=== PATIENT | male | born 1970 | race African-American/Black ===

== ENCOUNTER 2016-08-23 17:54 | Emergency (ER) | payer MEDICAID, OTHER ==
[~2016-08-23] VITALS: Ht 180.3 cm; Wt 118.7 kg
[~2016-08-23 17:54] MED LIST: DIVA500T52 PO; LISI-618 PO; LITH300C3 PO; PALI6 PO
[2016-08-23 18:41] LABS: BASOPHILS # (AUTO) 0.09 K/uL (0.00-0.20); BASOPHILS % (AUTO) 1.3 % (0.0-2.0); EOSINOPHILS # (AUTO) 0.07 K/uL (0.00-0.70); EOSINOPHILS % (AUTO) 0.99 % (1.0-6.0); HEMATOCRIT 40.9 % (41-53); HEMOGLOBIN 13.6 g/dL (13.5-17.5); LYMPHOCYTES # (AUTO) 1.8 K/uL (1.0-4.8); LYMPHOCYTES % (AUTO) 27.2 % (22.0-44.0); MEAN CORPUSCULAR HEMOGLOBIN 30.1 pg (26.0-34.0); MEAN CORPUSCULAR HGB CONC 33.2 G/dL (31.0-37.0); MEAN CORPUSCULAR VOLUME 91 fL (80-100); MONOCYTES # (AUTO) 0.6 K/uL (0.1-1.0); MONOCYTES % (AUTO) 8.2 % (2.0-9.0); NEUTROPHILS # (AUTO) 4.2 K/uL (1.8-7.7); NEUTROPHILS % (AUTO) 62.3 % (40.0-70.0); PLATELET COUNT (AUTO) 301 K/uL (150-450); RED BLOOD CELL COUNT(AUTO) 4.51 MIL/uL (4.50-5.90); RED CELL DISTRIBUTION WIDTH 13.2 % (11.5-14.5); WHITE BLOOD COUNT (AUTO) 6.7 K/uL (4.5-11.0)
[2016-08-23 18:50] LABS: ANION GAP 11 mmol/L (8-16); CALCIUM, TOTAL 9.4 mg/dL (8.8-10.5); CARBON DIOXIDE 28 mmol/L (22-29); CHLORIDE 101 mmol/L (98-107); CREATININE 0.75 mg/dL (0.60-1.30); GLOMERULAR FILTR. RATE CALC > 60 mL/min (>60); POTASSIUM 3.6 mmol/L (3.5-5.1); SODIUM SERUM 140 mmol/L (136-145); UREA NITROGEN, BLOOD 4 mg/dL (7-18)
[2016-08-23 18:55] LABS: ALANINE AMINOTRANSFERASE 16 U/L (12-78); ALBUMIN 3.8 g/dL (3.4-5.0); ASPARTATE AMINOTRANSFERASE 16 U/L (15-37); BILIRUBIN,TOTAL 0.4 mg/dL (0.1-1.0); TOTAL PROTEIN, SERUM 8.3 g/dL (6.4-8.2)
[2016-08-23 18:57] LABS: VALPROIC ACID < 3 mcg/mL (50-100)
[2016-08-23 19:11] LABS: LITHIUM < 0.20 mmol/L (0.60-1.20)
[2016-08-23 19:14] VITALS: BP 160/90
[2016-08-23] MEDS ORDERED: HALOPERIDOL 5 MG TABLET PO ONE (19:15)
== END 2016-08-23 19:36 | disposition home or self-care (01) ==
LOC: EMS 17:56
DX: F20.0 Paranoid schizophrenia (principal); I10 Essential (primary) hypertension; F31.9 Bipolar disorder, unspecified; Z88.8 Allergy status to other drugs, medicaments and biological substances
CPT/HCPCS: 36415; 80053; 80164; 80178; 85025; 99284; G0480

== ENCOUNTER 2017-04-02 15:57 | Inpatient (IN) | payer MEDICAID, OTHER ==
[~2017-04-02] VITALS: Ht 180.3 cm; Wt 98.9 kg
[2017-04-02 17:03] LABS: GLUCOSE,POINT OF CARE 99 MG/DL (70-110)
[2017-04-02 17:12] LABS: BASOPHILS # (AUTO) 0.01 K/uL (0.00-0.20); BASOPHILS % (AUTO) 0.2 % (0.0-2.0); EOSINOPHILS # (AUTO) 0.18 K/uL (0.00-0.70); EOSINOPHILS % (AUTO) 2.77 % (1.0-6.0); HEMATOCRIT 37.2 % (41-53); HEMOGLOBIN 12.5 g/dL (13.5-17.5); LYMPHOCYTES # (AUTO) 1.4 K/uL (1.0-4.8); LYMPHOCYTES % (AUTO) 21.7 % (22.0-44.0); MEAN CORPUSCULAR HEMOGLOBIN 30.2 pg (26.0-34.0); MEAN CORPUSCULAR HGB CONC 33.5 G/dL (31.0-37.0); MEAN CORPUSCULAR VOLUME 90 fL (80-100); MONOCYTES # (AUTO) 0.6 K/uL (0.1-1.0); MONOCYTES % (AUTO) 9.1 % (2.0-9.0); NEUTROPHILS # (AUTO) 4.2 K/uL (1.8-7.7); NEUTROPHILS % (AUTO) 66.3 % (40.0-70.0); PLATELET COUNT (AUTO) 262 K/uL (150-450); RED BLOOD CELL COUNT(AUTO) 4.14 MIL/uL (4.50-5.90); RED CELL DISTRIBUTION WIDTH 13.2 % (11.5-14.5); WHITE BLOOD COUNT (AUTO) 6.4 K/uL (4.5-11.0)
[2017-04-02 17:23] LABS: ANION GAP 5 mmol/L (8-16); CALCIUM, TOTAL 9.2 mg/dL (8.8-10.5); CARBON DIOXIDE 31 mmol/L (22-29); CHLORIDE 105 mmol/L (98-107); CREATININE 0.81 mg/dL (0.60-1.30); GLOMERULAR FILTR. RATE CALC > 60 mL/min (>60); POTASSIUM 3.6 mmol/L (3.5-5.1); SODIUM SERUM 141 mmol/L (136-145); UREA NITROGEN, BLOOD 20 mg/dL (7-18)
[2017-04-02 17:29] LABS: ALANINE AMINOTRANSFERASE 42 U/L (12-78); ALBUMIN 3.5 g/dL (3.4-5.0); ASPARTATE AMINOTRANSFERASE 44 U/L (15-37); BILIRUBIN,TOTAL 0.6 mg/dL (0.1-1.0); TOTAL PROTEIN, SERUM 7.7 g/dL (6.4-8.2)
[2017-04-02] MEDS: PALIPERIDONE 6 MG ER TABLET PO SCH (21:34)
[2017-04-02] MEDS: DIVALPROEX SODIUM 500 MG ER TABLET PO SCH (21:34)
[2017-04-02 21:37] VITALS: BP 138/71
[2017-04-02 22:07] LABS: GLUCOSE,POINT OF CARE 87 MG/DL (70-110)
[2017-04-02] MEDS ORDERED: -PHARMACY VACCINE NOTE- MISC ONE ×2 (22:15)
[2017-04-02] MEDS ORDERED: INFLUENZA VIRUS VACCINE QVS 2017-18 (3YR+)/PF 60 MCG/0.5 ML SYRINGE IM ONE (22:15)
[2017-04-02 23:31] LABS: CHOL/HDL RATIO 3.4 (4.2-7.3); THYROID STIMULATING HORMONE 0.37 uIU/mL (0.36-3.74)
[2017-04-03 06:29] LABS: GLUCOSE,POINT OF CARE 107 MG/DL (70-110)
[2017-04-03 08:18] VITALS: BP 126/85
[2017-04-03] MEDS: LORazepam 2 MG TABLET PO PRN ×3 (08:40→17:02)
[2017-04-03] MEDS: LISINOPRIL 20 MG TABLET PO SCH ×2 (08:41→17:02)
[2017-04-03] MEDS ORDERED: NICOTINE 21 MG/24 HOUR PATCH TD SCH (09:00)
[2017-04-03 11:33] LABS: GLUCOSE,POINT OF CARE 101 MG/DL (70-110)
[2017-04-03] MEDS: HALOPERIDOL 5 MG TABLET PO PRN ×2 (12:55→17:02)
[2017-04-03] MEDS: NICOTINE 14 MG/24 HOUR PATCH TD SCH (14:45)
[2017-04-03] MEDS ORDERED: ACETAMINOPHEN 325 MG TABLET PO PRN (14:45)
[2017-04-03 16:00] VITALS: BP 120/68
[2017-04-03] MEDS: DIVALPROEX SODIUM 500 MG ER TABLET PO SCH (20:53)
[2017-04-03] MEDS: PALIPERIDONE 6 MG ER TABLET PO SCH (20:53)
[2017-04-03 22:54] LABS: GLUCOSE,POINT OF CARE 100 MG/DL (70-110)
[2017-04-04 00:41] VITALS: BP 128/81
[2017-04-04 08:19] VITALS: BP 138/80
[2017-04-04] MEDS: HALOPERIDOL 5 MG TABLET PO PRN ×3 (08:38→17:23)
[2017-04-04] MEDS: LORazepam 2 MG TABLET PO PRN ×3 (08:38→17:23)
[2017-04-04] MEDS: NICOTINE 14 MG/24 HOUR PATCH TD SCH (08:38)
[2017-04-04] MEDS: LISINOPRIL 20 MG TABLET PO SCH ×2 (08:38→17:15)
[2017-04-04 09:43] LABS: GLUCOSE,POINT OF CARE 83 MG/DL (70-110)
[2017-04-04 14:48] LABS: GLUCOSE,POINT OF CARE 91 MG/DL (70-110)
[2017-04-04 16:00] VITALS: BP 140/89
[2017-04-04 19:03] LABS: GLUCOSE,POINT OF CARE 85 MG/DL (70-110)
[2017-04-04] MEDS: PALIPERIDONE 6 MG ER TABLET PO SCH (20:12)
[2017-04-04] MEDS: DIVALPROEX SODIUM 500 MG ER TABLET PO SCH (20:12)
[2017-04-04 21:47] LABS: GLUCOSE,POINT OF CARE 96 MG/DL (70-110)
[2017-04-05 05:50] VITALS: BP 135/87
[2017-04-05 06:13] LABS: GLUCOSE,POINT OF CARE 111 MG/DL (70-110)
[2017-04-05 08:14] VITALS: BP 138/81
[2017-04-05] MEDS: LISINOPRIL 20 MG TABLET PO SCH ×2 (08:58→17:15)
[2017-04-05] MEDS: HALOPERIDOL 5 MG TABLET PO PRN ×2 (08:58→17:15)
[2017-04-05] MEDS: LORazepam 2 MG TABLET PO PRN ×2 (08:58→17:16)
[2017-04-05] MEDS: NICOTINE 14 MG/24 HOUR PATCH TD SCH (08:58)
[2017-04-05 11:38] LABS: GLUCOSE COMMENT 1 Received Meds; GLUCOSE,POINT OF CARE 210 MG/DL (70-110)
[2017-04-05 16:00] VITALS: BP 131/68
[2017-04-05 17:37] LABS: GLUCOSE,POINT OF CARE 97 MG/DL (70-110)
[2017-04-05] MEDS: ZOLPIDEM TARTRATE 10 MG TABLET PO PRN (20:46)
[2017-04-05] MEDS: PALIPERIDONE 6 MG ER TABLET PO SCH (20:46)
[2017-04-05] MEDS: DIVALPROEX SODIUM 500 MG ER TABLET PO SCH (20:46)
[2017-04-05 21:02] LABS: GLUCOSE,POINT OF CARE 85 MG/DL (70-110)
[2017-04-06 03:53] VITALS: BP 138/70
[2017-04-06 06:27] LABS: GLUCOSE,POINT OF CARE 117 MG/DL (70-110)
[2017-04-06 08:02] VITALS: BP 146/86
[2017-04-06] MEDS: NICOTINE 14 MG/24 HOUR PATCH TD SCH (09:33)
[2017-04-06] MEDS: HALOPERIDOL 5 MG TABLET PO PRN ×2 (09:33→13:40)
[2017-04-06] MEDS: LISINOPRIL 20 MG TABLET PO SCH ×2 (09:33→17:13)
[2017-04-06] MEDS: LORazepam 2 MG TABLET PO PRN ×3 (09:33→21:14)
[2017-04-06 11:38] LABS: GLUCOSE,POINT OF CARE 97 MG/DL (70-110)
[2017-04-06 17:37] LABS: GLUCOSE,POINT OF CARE 86 MG/DL (70-110)
[2017-04-06 20:22] LABS: GLUCOSE,POINT OF CARE 100 MG/DL (70-110)
[2017-04-06] MEDS: PALIPERIDONE 6 MG ER TABLET PO SCH (21:14)
[2017-04-06] MEDS: DIVALPROEX SODIUM 500 MG ER TABLET PO SCH (21:14)
[2017-04-06] MEDS: ZOLPIDEM TARTRATE 10 MG TABLET PO PRN (21:14)
[2017-04-07 06:28] LABS: GLUCOSE,POINT OF CARE 80 MG/DL (70-110)
[2017-04-07] MEDS: LISINOPRIL 20 MG TABLET PO SCH ×2 (09:17→17:17)
[2017-04-07] MEDS: NICOTINE 14 MG/24 HOUR PATCH TD SCH (09:18)
[2017-04-07 09:35] VITALS: BP 138/68
[2017-04-07 10:00] LABS: HEMOGLOBIN A1C 5.8 % (4.5-6.2)
[2017-04-07] MEDS: LORazepam 2 MG TABLET PO PRN ×2 (10:58→17:17)
[2017-04-07] MEDS: IBUPROFEN 400 MG TABLET PO PRN (10:58)
[2017-04-07] MEDS: HALOPERIDOL 5 MG TABLET PO PRN ×2 (10:58→17:17)
[2017-04-07] MEDS ORDERED: HALOPERIDOL LACTATE 5 MG/ML VIAL IM PRN (13:15)
[2017-04-07 13:20] LABS: GLUCOSE,POINT OF CARE 80 MG/DL (70-110)
[2017-04-07] MEDS ORDERED: PALIPERIDONE PALMITATE 234 MG/1.5 ML SYRINGE IM ONE (15:00)
[2017-04-07 16:00] VITALS: BP 127/74
[2017-04-07] MEDS: DIVALPROEX SODIUM 500 MG DR TABLET PO SCH (20:34)
[2017-04-07] MEDS: ZOLPIDEM TARTRATE 10 MG TABLET PO PRN (20:34)
[2017-04-07] MEDS: PALIPERIDONE 6 MG ER TABLET PO SCH (20:34)
[2017-04-08 01:48] LABS: GLUCOSE,POINT OF CARE 85 MG/DL (70-110)
[2017-04-08 01:53] LABS: GLUCOSE,POINT OF CARE 85 MG/DL (70-110)
[2017-04-08 08:12] VITALS: BP 134/84
[2017-04-08] MEDS: NICOTINE 14 MG/24 HOUR PATCH TD SCH (08:34)
[2017-04-08] MEDS: DIVALPROEX SODIUM 500 MG DR TABLET PO SCH ×2 (08:34→20:53)
[2017-04-08] MEDS: HALOPERIDOL 5 MG TABLET PO PRN ×2 (08:34→17:01)
[2017-04-08] MEDS: LISINOPRIL 20 MG TABLET PO SCH ×2 (08:35→17:01)
[2017-04-08] MEDS: LORazepam 2 MG TABLET PO PRN ×2 (08:35→17:01)
[2017-04-08 09:20] LABS: GLUCOSE,POINT OF CARE 87 MG/DL (70-110)
[2017-04-08 11:17] LABS: GLUCOSE,POINT OF CARE 73 MG/DL (70-110)
[2017-04-08 16:00] VITALS: BP 140/79
[2017-04-08 16:32] LABS: GLUCOSE,POINT OF CARE 84 MG/DL (70-110)
[2017-04-08] MEDS: PALIPERIDONE 6 MG ER TABLET PO SCH (20:53)
[2017-04-08] MEDS: ZOLPIDEM TARTRATE 10 MG TABLET PO PRN (20:54)
[2017-04-08] MEDS: IBUPROFEN 400 MG TABLET PO PRN (20:54)
[2017-04-08 21:27] LABS: GLUCOSE,POINT OF CARE 90 MG/DL (70-110)
[2017-04-09 06:08] LABS: GLUCOSE,POINT OF CARE 123 MG/DL (70-110)
[2017-04-09 06:30] VITALS: BP 135/74
[2017-04-09 08:12] VITALS: BP 138/76
[2017-04-09] MEDS: DIVALPROEX SODIUM 500 MG DR TABLET PO SCH ×2 (09:01→20:27)
[2017-04-09] MEDS: NICOTINE 14 MG/24 HOUR PATCH TD SCH (09:01)
[2017-04-09] MEDS: LISINOPRIL 20 MG TABLET PO SCH ×2 (09:02→17:04)
[2017-04-09] MEDS: LORazepam 2 MG TABLET PO PRN ×2 (09:02→17:04)
[2017-04-09] MEDS: IBUPROFEN 400 MG TABLET PO PRN (11:21)
[2017-04-09 11:22] VITALS: BP 124/77
[2017-04-09 11:27] LABS: GLUCOSE COMMENT 1 Repeated; GLUCOSE,POINT OF CARE 85 MG/DL (70-110)
[2017-04-09 17:02] LABS: GLUCOSE,POINT OF CARE 84 MG/DL (70-110)
[2017-04-09] MEDS: HALOPERIDOL 5 MG TABLET PO PRN (17:04)
[2017-04-09] MEDS: FERROUS SULFATE 325 MG EC TABLET PO SCH (17:04)
[2017-04-09 20:27] LABS: GLUCOSE,POINT OF CARE 87 MG/DL (70-110)
[2017-04-09] MEDS: PALIPERIDONE 6 MG ER TABLET PO SCH (20:27)
[2017-04-09] MEDS: ZOLPIDEM TARTRATE 10 MG TABLET PO PRN (20:34)
[2017-04-10 06:12] LABS: GLUCOSE,POINT OF CARE 134 MG/DL (70-110)
[2017-04-10] MEDS: FERROUS SULFATE 325 MG EC TABLET PO SCH ×2 (06:19→16:50)
[2017-04-10 08:18] VITALS: BP 131/75
[2017-04-10] MEDS: LISINOPRIL 20 MG TABLET PO SCH ×2 (09:04→16:50)
[2017-04-10] MEDS: DIVALPROEX SODIUM 500 MG DR TABLET PO SCH ×2 (09:04→21:01)
[2017-04-10] MEDS: NICOTINE 14 MG/24 HOUR PATCH TD SCH (09:40)
[2017-04-10 11:38] LABS: GLUCOSE,POINT OF CARE 99 MG/DL (70-110)
[2017-04-10] MEDS: LORazepam 2 MG TABLET PO PRN (14:50)
[2017-04-10] MEDS: HALOPERIDOL 5 MG TABLET PO PRN (14:50)
[2017-04-10 17:42] LABS: GLUCOSE,POINT OF CARE 86 MG/DL (70-110)
[2017-04-10] MEDS: ZOLPIDEM TARTRATE 10 MG TABLET PO PRN (21:01)
[2017-04-10] MEDS: PALIPERIDONE 6 MG ER TABLET PO SCH (21:01)
[2017-04-11 06:23] LABS: GLUCOSE,POINT OF CARE 107 MG/DL (70-110)
[2017-04-11] MEDS: FERROUS SULFATE 325 MG EC TABLET PO SCH ×2 (06:37→16:53)
[2017-04-11 08:11] VITALS: BP 130/77
[2017-04-11] MEDS: LISINOPRIL 20 MG TABLET PO SCH ×2 (08:34→16:54)
[2017-04-11] MEDS: DIVALPROEX SODIUM 500 MG DR TABLET PO SCH ×2 (08:34→21:05)
[2017-04-11] MEDS: NICOTINE 14 MG/24 HOUR PATCH TD SCH (08:34)
[2017-04-11] MEDS ORDERED: PALIPERIDONE PALMITATE 156 MG/ML SYRINGE IM ONE (09:00)
[2017-04-11] MEDS: LORazepam 2 MG TABLET PO PRN ×2 (11:01→16:54)
[2017-04-11] MEDS: HALOPERIDOL 5 MG TABLET PO PRN ×2 (11:01→16:54)
[2017-04-11 11:27] LABS: GLUCOSE,POINT OF CARE 82 MG/DL (70-110)
[2017-04-11 16:27] LABS: GLUCOSE,POINT OF CARE 92 MG/DL (70-110)
[2017-04-11 20:42] LABS: GLUCOSE,POINT OF CARE 88 MG/DL (70-110)
[2017-04-11] MEDS: ZOLPIDEM TARTRATE 10 MG TABLET PO PRN (21:05)
[2017-04-11] MEDS: PALIPERIDONE 6 MG ER TABLET PO SCH (21:05)
[2017-04-12] MEDS: FERROUS SULFATE 325 MG EC TABLET PO SCH ×2 (06:59→16:16)
[2017-04-12] MEDS: LISINOPRIL 20 MG TABLET PO SCH ×2 (09:05→16:16)
[2017-04-12] MEDS: DIVALPROEX SODIUM 500 MG DR TABLET PO SCH ×2 (09:05→20:34)
[2017-04-12] MEDS: NICOTINE 14 MG/24 HOUR PATCH TD SCH (09:06)
[2017-04-12] MEDS: HALOPERIDOL 5 MG TABLET PO PRN ×2 (09:06→16:16)
[2017-04-12] MEDS: LORazepam 2 MG TABLET PO PRN ×3 (09:06→20:34)
[2017-04-12 17:52] LABS: GLUCOSE,POINT OF CARE 82 MG/DL (70-110)
[2017-04-12] MEDS: ZOLPIDEM TARTRATE 10 MG TABLET PO PRN (20:34)
[2017-04-12] MEDS: PALIPERIDONE 6 MG ER TABLET PO SCH (20:34)
[2017-04-13] MEDS: FERROUS SULFATE 325 MG EC TABLET PO SCH ×2 (06:34→16:22)
[2017-04-13] MEDS: LISINOPRIL 20 MG TABLET PO SCH ×2 (08:26→16:22)
[2017-04-13] MEDS: LORazepam 2 MG TABLET PO PRN ×3 (08:27→20:54)
[2017-04-13] MEDS: DIVALPROEX SODIUM 500 MG DR TABLET PO SCH ×2 (08:27→20:54)
[2017-04-13] MEDS: NICOTINE 14 MG/24 HOUR PATCH TD SCH (08:36)
[2017-04-13] MEDS: HALOPERIDOL 5 MG TABLET PO PRN ×2 (11:40→16:22)
[2017-04-13 16:24] VITALS: BP 135/84
[2017-04-13] MEDS: ZOLPIDEM TARTRATE 10 MG TABLET PO PRN (20:54)
[2017-04-13] MEDS: PALIPERIDONE 6 MG ER TABLET PO SCH (20:54)
[2017-04-14] MEDS: FERROUS SULFATE 325 MG EC TABLET PO SCH ×2 (06:35→16:08)
[2017-04-14] MEDS: DIVALPROEX SODIUM 500 MG DR TABLET PO SCH ×2 (08:42→20:44)
[2017-04-14] MEDS: LISINOPRIL 20 MG TABLET PO SCH ×2 (08:42→16:08)
[2017-04-14] MEDS: NICOTINE 14 MG/24 HOUR PATCH TD SCH (08:43)
[2017-04-14] MEDS: LORazepam 2 MG TABLET PO PRN ×3 (08:43→20:44)
[2017-04-14] MEDS: HALOPERIDOL 5 MG TABLET PO PRN (16:08)
[2017-04-14] MEDS: ZOLPIDEM TARTRATE 10 MG TABLET PO PRN (20:44)
[2017-04-14] MEDS: PALIPERIDONE 6 MG ER TABLET PO SCH (20:44)
[2017-04-15] MEDS: FERROUS SULFATE 325 MG EC TABLET PO SCH (06:33)
[2017-04-15] MEDS: LORazepam 2 MG TABLET PO PRN ×2 (08:53→12:53)
[2017-04-15] MEDS: LISINOPRIL 20 MG TABLET PO SCH (08:53)
[2017-04-15] MEDS: NICOTINE 14 MG/24 HOUR PATCH TD SCH (08:53)
[2017-04-15] MEDS: HALOPERIDOL 5 MG TABLET PO PRN (08:54)
[2017-04-15] MEDS: DIVALPROEX SODIUM 500 MG DR TABLET PO SCH (08:54)
[2017-04-15] MEDS ORDERED: PALI234D IM (11:49)
[2017-05-09] MEDS ORDERED: PALIPERIDONE PALMITATE 234 MG/1.5 ML SYRINGE IM SCH (09:00)
== END 2017-04-15 17:30 | disposition home or self-care (01) | DRG 750 ==
LOC: EMS 15:59 → B3A 19:30
DX: F20.0 Paranoid schizophrenia (principal); E11.9 Type 2 diabetes mellitus without complications; I10 Essential (primary) hypertension; E03.9 Hypothyroidism, unspecified; D64.9 Anemia, unspecified; E78.5 Hyperlipidemia, unspecified; F17.200 Nicotine dependence, unspecified, uncomplicated; F12.90 Cannabis use, unspecified, uncomplicated; Z59.0 Homelessness; Z28.21 Immunization not carried out because of patient refusal; Z88.8 Allergy status to other drugs, medicaments and biological substances; Z79.899 Other long term (current) drug therapy; Z71.6 Tobacco abuse counseling; Z71.51 Drug abuse counseling and surveillance of drug abuser
CPT/HCPCS: 82962; 83036; 84439; 84443; 99285; G0480

== ENCOUNTER 2017-06-15 19:41 | Inpatient (IN) | payer MEDICAID ==
[~2017-06-15] VITALS: Ht 182.9 cm; Wt 95.3 kg
[~2017-06-15 19:41] MED LIST changes: -LITH300C3 PO; +PALI234D IM
[2017-06-15] MEDS ORDERED: LORazepam 2 MG/ML VIAL ONE (20:20)
[2017-06-15] MEDS ORDERED: DiphenhydrAMINE HCL 50 MG/ML VIAL ONE (20:20)
[2017-06-15] MEDS ORDERED: HALOPERIDOL LACTATE 5 MG/ML VIAL ONE (20:20)
[2017-06-15 20:30] VITALS: BP 156/102
[2017-06-15] MEDS ORDERED: DiphenhydrAMINE HCL 50 MG/ML VIAL IM ONE (20:30)
[2017-06-15] MEDS ORDERED: LORazepam 2 MG/ML VIAL IM ONE (20:30)
[2017-06-15] MEDS ORDERED: HALOPERIDOL LACTATE 5 MG/ML VIAL IM ONE (20:30)
[2017-06-15 21:34] VITALS: BP 156/102
[2017-06-15] MEDS: LISINOPRIL 20 MG TABLET PO SCH (22:13)
[2017-06-15] MEDS: PALIPERIDONE 6 MG ER TABLET PO SCH (22:13)
[2017-06-15] MEDS ORDERED: -PHARMACY VACCINE NOTE- MISC ONE (22:30)
[2017-06-15] MEDS ORDERED: INFLUENZA VIRUS VACCINE QVS 2017-18 (3YR+)/PF 60 MCG/0.5 ML SYRINGE IM ONE (22:30)
[2017-06-16 06:43] VITALS: BP 133/74
[2017-06-16 08:14] VITALS: BP 149/71
[2017-06-16] MEDS: PALIPERIDONE 6 MG ER TABLET PO SCH ×2 (09:00→17:00)
[2017-06-16] MEDS: LISINOPRIL 20 MG TABLET PO SCH ×2 (09:00→17:00)
[2017-06-17] MEDS: IBUPROFEN 400 MG TABLET PO PRN (04:52)
[2017-06-17 04:53] VITALS: BP 101/58
[2017-06-17 05:30] VITALS: BP 128/88
[2017-06-17] MEDS: HALOPERIDOL 5 MG TABLET PO PRN ×3 (05:33→20:55)
[2017-06-17] MEDS: LORazepam 2 MG TABLET PO PRN ×4 (05:33→20:55)
[2017-06-17 07:35] LABS: BASOPHILS # (AUTO) 0.02 K/uL (0.00-0.20); BASOPHILS % (AUTO) 0.3 % (0.0-2.0); EOSINOPHILS # (AUTO) 0.09 K/uL (0.00-0.70); EOSINOPHILS % (AUTO) 1.84 % (1.0-6.0); HEMATOCRIT 39.1 % (41-53); HEMOGLOBIN 12.9 g/dL (13.5-17.5); LYMPHOCYTES # (AUTO) 1.7 K/uL (1.0-4.8); LYMPHOCYTES % (AUTO) 32.2 % (22.0-44.0); MEAN CORPUSCULAR HEMOGLOBIN 30.2 pg (26.0-34.0); MEAN CORPUSCULAR HGB CONC 32.9 G/dL (31.0-37.0); MEAN CORPUSCULAR VOLUME 92 fL (80-100); MONOCYTES # (AUTO) 0.4 K/uL (0.1-1.0); MONOCYTES % (AUTO) 6.8 % (2.0-9.0); NEUTROPHILS % (AUTO) 58.9 % (40.0-70.0); PLATELET COUNT (AUTO) 246 K/uL (150-450); RED BLOOD CELL COUNT(AUTO) 4.26 MIL/uL (4.50-5.90); RED CELL DISTRIBUTION WIDTH 14.1 % (11.5-14.5)
[2017-06-17 07:52] LABS: ALANINE AMINOTRANSFERASE 28 U/L (12-78); ALBUMIN 3.3 g/dL (3.4-5.0); ALKALINE PHOSPHATASE 69 U/L (46-116); ANION GAP 8 mmol/L (8-16); ASPARTATE AMINOTRANSFERASE 17 U/L (15-37); BILIRUBIN,TOTAL 0.3 mg/dL (0.1-1.0); CALCIUM, TOTAL 9.1 mg/dL (8.8-10.5); CARBON DIOXIDE 26 mmol/L (22-29); CHLORIDE 102 mmol/L (98-107); CREATININE 0.82 mg/dL (0.60-1.30); GLOMERULAR FILTR. RATE CALC > 60 mL/min (>60); GLUCOSE,RANDOM 83 mg/dL (70-110); POTASSIUM 4.1 mmol/L (3.5-5.1); SODIUM SERUM 136 mmol/L (136-145); TOTAL PROTEIN, SERUM 7.4 g/dL (6.4-8.2); UREA NITROGEN, BLOOD 18 mg/dL (7-18)
[2017-06-17 08:22] VITALS: BP 115/63
[2017-06-17] MEDS: PALIPERIDONE 6 MG ER TABLET PO SCH ×2 (09:29→16:52)
[2017-06-17] MEDS: LISINOPRIL 20 MG TABLET PO SCH ×2 (09:29→16:52)
[2017-06-17] MEDS: ZOLPIDEM TARTRATE 10 MG TABLET PO PRN (20:56)
[2017-06-18 02:34] VITALS: BP 131/88
[2017-06-18] MEDS: HALOPERIDOL 5 MG TABLET PO PRN ×3 (08:20→16:39)
[2017-06-18] MEDS: LISINOPRIL 20 MG TABLET PO SCH ×2 (08:20→16:41)
[2017-06-18] MEDS: LORazepam 2 MG TABLET PO PRN ×3 (08:20→16:39)
[2017-06-18] MEDS: PALIPERIDONE 6 MG ER TABLET PO SCH ×2 (08:20→16:39)
[2017-06-18 16:00] VITALS: BP 135/71
[2017-06-19] MEDS: LORazepam 2 MG TABLET PO PRN ×2 (05:36→16:07)
[2017-06-19] MEDS: HALOPERIDOL 5 MG TABLET PO PRN ×2 (05:36→16:07)
[2017-06-19 06:43] VITALS: BP 137/70
[2017-06-19] MEDS: LISINOPRIL 20 MG TABLET PO SCH ×2 (08:29→16:07)
[2017-06-19] MEDS: PALIPERIDONE 6 MG ER TABLET PO SCH ×2 (08:29→16:07)
[2017-06-19 09:08] VITALS: BP 137/79
[2017-06-19 16:00] VITALS: BP 158/110
[2017-06-19 17:00] VITALS: BP 132/76
[2017-06-20 06:17] VITALS: BP 132/88
[2017-06-20] MEDS: LISINOPRIL 20 MG TABLET PO SCH ×2 (08:53→16:57)
[2017-06-20] MEDS: PALIPERIDONE 6 MG ER TABLET PO SCH ×2 (08:54→16:57)
[2017-06-20 10:21] VITALS: BP 139/99
[2017-06-20] MEDS: LORazepam 2 MG TABLET PO PRN ×2 (13:21→16:57)
[2017-06-20 16:00] VITALS: BP 133/82
[2017-06-21 06:40] VITALS: BP 134/79
[2017-06-21 08:00] VITALS: BP 135/88
[2017-06-21] MEDS: LORazepam 2 MG TABLET PO PRN ×2 (08:03→16:53)
[2017-06-21] MEDS: LISINOPRIL 20 MG TABLET PO SCH ×2 (08:03→16:53)
[2017-06-21] MEDS: HALOPERIDOL 5 MG TABLET PO PRN ×2 (08:03→16:53)
[2017-06-21] MEDS: PALIPERIDONE 6 MG ER TABLET PO SCH ×2 (08:03→16:53)
[2017-06-21 16:05] VITALS: BP 130/82
[2017-06-22] MEDS: LISINOPRIL 20 MG TABLET PO SCH ×2 (08:39→16:40)
[2017-06-22] MEDS: PALIPERIDONE 6 MG ER TABLET PO SCH ×2 (08:39→16:40)
[2017-06-22] MEDS ORDERED: TUBERCULIN, PURIFIED PROTEIN DERIVATIVE 5 TU/0.1 ML SYG ID ONE (13:15)
[2017-06-22] MEDS: LORazepam 2 MG TABLET PO PRN ×2 (16:40→20:51)
[2017-06-22] MEDS: HALOPERIDOL 5 MG TABLET PO PRN (16:40)
[2017-06-22] MEDS: ZOLPIDEM TARTRATE 10 MG TABLET PO PRN (20:51)
[2017-06-23] MEDS: PALIPERIDONE 6 MG ER TABLET PO SCH ×2 (08:20→16:55)
[2017-06-23] MEDS: LORazepam 2 MG TABLET PO PRN ×3 (08:20→16:55)
[2017-06-23] MEDS: HALOPERIDOL 5 MG TABLET PO PRN ×3 (08:20→16:55)
[2017-06-23] MEDS: LISINOPRIL 20 MG TABLET PO SCH ×2 (08:20→16:55)
[2017-06-23 08:22] VITALS: BP 139/86
[2017-06-23 16:13] VITALS: BP 132/78
[2017-06-24] MEDS: LORazepam 2 MG TABLET PO PRN ×2 (08:35→14:43)
[2017-06-24] MEDS: LISINOPRIL 20 MG TABLET PO SCH ×2 (08:35→16:23)
[2017-06-24] MEDS: HALOPERIDOL 5 MG TABLET PO PRN ×2 (08:35→14:43)
[2017-06-24] MEDS: PALIPERIDONE 6 MG ER TABLET PO SCH ×2 (08:35→16:23)
[2017-06-24 17:27] VITALS: BP 129/67
[2017-06-25] MEDS: LISINOPRIL 20 MG TABLET PO SCH ×2 (08:47→16:26)
[2017-06-25] MEDS: HALOPERIDOL 5 MG TABLET PO PRN ×2 (08:47→16:27)
[2017-06-25] MEDS: PALIPERIDONE 6 MG ER TABLET PO SCH ×2 (08:47→16:26)
[2017-06-25] MEDS: LORazepam 2 MG TABLET PO PRN ×2 (08:47→16:27)
[2017-06-26 08:15] VITALS: BP 139/75
[2017-06-26] MEDS: HALOPERIDOL 5 MG TABLET PO PRN ×2 (09:43→17:28)
[2017-06-26] MEDS: PALIPERIDONE 6 MG ER TABLET PO SCH ×2 (09:43→17:28)
[2017-06-26] MEDS: LORazepam 2 MG TABLET PO PRN ×2 (09:43→17:28)
[2017-06-26] MEDS: LISINOPRIL 20 MG TABLET PO SCH ×2 (09:43→17:28)
[2017-06-26] MEDS: ZOLPIDEM TARTRATE 10 MG TABLET PO PRN (20:48)
[2017-06-27 06:13] VITALS: BP 132/80
[2017-06-27] MEDS: LISINOPRIL 20 MG TABLET PO SCH ×2 (08:35→16:20)
[2017-06-27] MEDS: PALIPERIDONE 6 MG ER TABLET PO SCH ×2 (08:35→16:20)
[2017-06-27 09:09] VITALS: BP 140/75
[2017-06-27] MEDS: LORazepam 2 MG TABLET PO PRN ×2 (10:52→16:20)
[2017-06-27] MEDS: HALOPERIDOL 5 MG TABLET PO PRN (16:20)
[2017-06-27] MEDS: ZOLPIDEM TARTRATE 10 MG TABLET PO PRN (21:39)
[2017-06-28] MEDS: ACETAMINOPHEN 325 MG TABLET PO PRN (05:45)
[2017-06-28 05:47] VITALS: BP 107/75
[2017-06-28 08:22] VITALS: BP 123/82
[2017-06-28] MEDS: PALIPERIDONE 6 MG ER TABLET PO SCH ×2 (09:17→16:44)
[2017-06-28] MEDS: LISINOPRIL 20 MG TABLET PO SCH ×2 (09:18→16:44)
[2017-06-28] MEDS: LORazepam 2 MG TABLET PO PRN ×2 (12:44→16:44)
[2017-06-28 16:14] VITALS: BP 111/70
[2017-06-28] MEDS: HALOPERIDOL 5 MG TABLET PO PRN (16:44)
[2017-06-29 08:00] VITALS: BP 138/85
[2017-06-29] MEDS: PALIPERIDONE 6 MG ER TABLET PO SCH ×2 (08:33→16:17)
[2017-06-29] MEDS: LISINOPRIL 20 MG TABLET PO SCH ×2 (08:33→16:17)
[2017-06-29] MEDS: LORazepam 2 MG TABLET PO PRN (08:33)
[2017-06-29] MEDS: ACETAMINOPHEN 325 MG TABLET PO PRN (08:50)
[2017-06-30 01:52] VITALS: BP 135/92
[2017-06-30 08:10] VITALS: BP 137/85
[2017-06-30] MEDS: LISINOPRIL 20 MG TABLET PO SCH ×2 (08:35→16:32)
[2017-06-30] MEDS: LORazepam 2 MG TABLET PO PRN ×2 (08:35→16:32)
[2017-06-30] MEDS: PALIPERIDONE 6 MG ER TABLET PO SCH ×2 (08:35→16:32)
[2017-06-30] MEDS: HALOPERIDOL 5 MG TABLET PO PRN ×2 (09:25→16:32)
[2017-06-30 16:00] VITALS: BP 124/73
[2017-06-30] MEDS: ZOLPIDEM TARTRATE 10 MG TABLET PO PRN (20:48)
[2017-07-01 08:35] VITALS: BP 131/70
[2017-07-01] MEDS: LISINOPRIL 20 MG TABLET PO SCH ×2 (09:51→16:15)
[2017-07-01] MEDS: LORazepam 2 MG TABLET PO PRN ×3 (09:51→20:37)
[2017-07-01] MEDS: PALIPERIDONE 6 MG ER TABLET PO SCH ×2 (09:51→16:15)
[2017-07-01] MEDS: NICOTINE 14 MG/24 HOUR PATCH TD SCH (09:54)
[2017-07-01] MEDS: HALOPERIDOL 5 MG TABLET PO PRN ×2 (10:52→16:15)
[2017-07-01 16:15] VITALS: BP 145/87
[2017-07-01] MEDS: ZOLPIDEM TARTRATE 10 MG TABLET PO PRN (20:37)
[2017-07-02 06:00] VITALS: BP 137/86
[2017-07-02 08:29] VITALS: BP 145/94
[2017-07-02] MEDS: LISINOPRIL 20 MG TABLET PO SCH ×2 (08:42→16:05)
[2017-07-02] MEDS: PALIPERIDONE 6 MG ER TABLET PO SCH ×2 (08:43→16:04)
[2017-07-02] MEDS: NICOTINE 14 MG/24 HOUR PATCH TD SCH (08:43)
[2017-07-02] MEDS ORDERED: LORazepam 2 MG/ML VIAL ONE (12:30)
[2017-07-02] MEDS ORDERED: HALOPERIDOL LACTATE 5 MG/ML VIAL ONE (12:30)
[2017-07-02] MEDS ORDERED: DiphenhydrAMINE HCL 50 MG/ML VIAL ONE (12:30)
[2017-07-02] MEDS ORDERED: DiphenhydrAMINE HCL 50 MG/ML VIAL IM ONE (13:00)
[2017-07-02] MEDS ORDERED: LORazepam 2 MG/ML VIAL IM ONE (13:00)
[2017-07-02] MEDS ORDERED: HALOPERIDOL LACTATE 5 MG/ML VIAL IM ONE (13:00)
[2017-07-02] MEDS: HALOPERIDOL 5 MG TABLET PO PRN (16:05)
[2017-07-02] MEDS: LORazepam 2 MG TABLET PO PRN ×2 (16:05→20:08)
[2017-07-02] MEDS: ZOLPIDEM TARTRATE 10 MG TABLET PO PRN (20:08)
[2017-07-03] MEDS: LISINOPRIL 20 MG TABLET PO SCH ×2 (08:48→16:54)
[2017-07-03] MEDS: PALIPERIDONE 6 MG ER TABLET PO SCH ×2 (08:49→16:54)
[2017-07-03] MEDS: HALOPERIDOL 5 MG TABLET PO PRN ×2 (08:49→16:54)
[2017-07-03] MEDS: LORazepam 2 MG TABLET PO PRN ×2 (08:49→16:54)
[2017-07-03] MEDS: NICOTINE 14 MG/24 HOUR PATCH TD SCH (08:49)
[2017-07-03 16:00] VITALS: BP 128/78
[2017-07-03] MEDS: ZOLPIDEM TARTRATE 10 MG TABLET PO PRN (20:06)
[2017-07-04 06:21] VITALS: BP 133/82
[2017-07-04 08:00] VITALS: BP 137/89
[2017-07-04] MEDS: PALIPERIDONE 6 MG ER TABLET PO SCH ×2 (09:27→16:46)
[2017-07-04] MEDS: LISINOPRIL 20 MG TABLET PO SCH ×2 (09:27→16:46)
[2017-07-04] MEDS: LORazepam 2 MG TABLET PO PRN ×2 (09:28→16:46)
[2017-07-04] MEDS: NICOTINE 14 MG/24 HOUR PATCH TD SCH (09:28)
[2017-07-04] MEDS: HALOPERIDOL 5 MG TABLET PO PRN ×2 (09:28→16:46)
[2017-07-04] MEDS ORDERED: DiphenhydrAMINE HCL 50 MG/ML VIAL ONE (10:58)
[2017-07-04] MEDS ORDERED: LORazepam 2 MG/ML VIAL ONE (10:58)
[2017-07-04] MEDS ORDERED: HALOPERIDOL LACTATE 5 MG/ML VIAL ONE (10:58)
[2017-07-04] MEDS ORDERED: HALOPERIDOL LACTATE 5 MG/ML VIAL IM ONE (11:00)
[2017-07-04] MEDS ORDERED: LORazepam 2 MG/ML VIAL IM ONE (11:00)
[2017-07-04] MEDS ORDERED: DiphenhydrAMINE HCL 50 MG/ML VIAL IM ONE (11:00)
[2017-07-04 16:12] VITALS: BP 129/75
[2017-07-04] MEDS: ZOLPIDEM TARTRATE 10 MG TABLET PO PRN (20:22)
[2017-07-05 05:52] VITALS: BP 128/83
[2017-07-05 08:11] VITALS: BP 136/84
[2017-07-05] MEDS: HALOPERIDOL 5 MG TABLET PO PRN ×2 (08:49→16:21)
[2017-07-05] MEDS: LISINOPRIL 20 MG TABLET PO SCH ×2 (08:49→16:21)
[2017-07-05] MEDS: LORazepam 2 MG TABLET PO PRN ×2 (08:49→16:21)
[2017-07-05] MEDS: PALIPERIDONE 6 MG ER TABLET PO SCH ×2 (08:49→16:21)
[2017-07-05] MEDS: NICOTINE 14 MG/24 HOUR PATCH TD SCH (08:50)
[2017-07-05 16:30] VITALS: BP 138/78
[2017-07-06 01:29] VITALS: BP 133/71
[2017-07-06] MEDS: LISINOPRIL 20 MG TABLET PO SCH ×2 (08:18→17:17)
[2017-07-06] MEDS: HALOPERIDOL 5 MG TABLET PO PRN ×3 (08:18→17:17)
[2017-07-06] MEDS: NICOTINE 14 MG/24 HOUR PATCH TD SCH (08:18)
[2017-07-06] MEDS: LORazepam 2 MG TABLET PO PRN ×3 (08:18→17:17)
[2017-07-06] MEDS: PALIPERIDONE 6 MG ER TABLET PO SCH ×2 (08:18→17:17)
[2017-07-06 08:21] VITALS: BP 138/84
[2017-07-06 16:00] VITALS: BP 124/67
[2017-07-07 06:30] VITALS: BP 128/76
[2017-07-07] MEDS: PALIPERIDONE 6 MG ER TABLET PO SCH ×2 (09:24→16:50)
[2017-07-07] MEDS: LISINOPRIL 20 MG TABLET PO SCH ×2 (09:25→16:50)
[2017-07-07] MEDS: HALOPERIDOL 5 MG TABLET PO PRN ×2 (09:26→16:50)
[2017-07-07] MEDS: NICOTINE 14 MG/24 HOUR PATCH TD SCH (09:26)
[2017-07-07] MEDS: LORazepam 2 MG TABLET PO PRN ×2 (09:26→16:50)
[2017-07-07 09:45] VITALS: BP 106/62
[2017-07-07 16:00] VITALS: BP 135/82
[2017-07-08 06:55] VITALS: BP 134/90
[2017-07-08] MEDS: HALOPERIDOL 5 MG TABLET PO PRN ×2 (08:26→16:21)
[2017-07-08] MEDS: NICOTINE 14 MG/24 HOUR PATCH TD SCH (08:26)
[2017-07-08] MEDS: LORazepam 2 MG TABLET PO PRN ×2 (08:26→16:21)
[2017-07-08] MEDS: PALIPERIDONE 6 MG ER TABLET PO SCH ×2 (08:26→16:21)
[2017-07-08] MEDS: LISINOPRIL 20 MG TABLET PO SCH ×2 (08:26→16:21)
[2017-07-08 09:06] VITALS: BP 112/61
[2017-07-08 16:30] VITALS: BP 111/73
[2017-07-09 05:03] VITALS: BP 140/69
[2017-07-09 08:12] VITALS: BP 111/87
[2017-07-09] MEDS: LISINOPRIL 20 MG TABLET PO SCH ×2 (09:19→16:49)
[2017-07-09] MEDS: PALIPERIDONE 6 MG ER TABLET PO SCH ×2 (09:19→16:49)
[2017-07-09] MEDS: HALOPERIDOL 5 MG TABLET PO PRN ×2 (09:19→16:49)
[2017-07-09] MEDS: NICOTINE 14 MG/24 HOUR PATCH TD SCH (09:19)
[2017-07-09] MEDS: LORazepam 2 MG TABLET PO PRN ×2 (09:19→16:49)
[2017-07-09 16:00] VITALS: BP 133/84
[2017-07-10 05:30] VITALS: BP 122/79
[2017-07-10 08:19] VITALS: BP 138/84
[2017-07-10] MEDS: NICOTINE 14 MG/24 HOUR PATCH TD SCH (08:38)
[2017-07-10] MEDS: LORazepam 2 MG TABLET PO PRN ×3 (08:39→21:23)
[2017-07-10] MEDS: PALIPERIDONE 6 MG ER TABLET PO SCH ×2 (08:39→17:03)
[2017-07-10] MEDS: LISINOPRIL 20 MG TABLET PO SCH ×2 (08:39→17:03)
[2017-07-10] MEDS: HALOPERIDOL 5 MG TABLET PO PRN ×2 (09:07→17:03)
[2017-07-10] MEDS: ZOLPIDEM TARTRATE 10 MG TABLET PO PRN (21:23)
[2017-07-11 08:17] VITALS: BP 136/84
[2017-07-11] MEDS: PALIPERIDONE 6 MG ER TABLET PO SCH ×2 (09:19→16:06)
[2017-07-11] MEDS: NICOTINE 14 MG/24 HOUR PATCH TD SCH (09:19)
[2017-07-11] MEDS: LORazepam 2 MG TABLET PO PRN ×2 (09:19→16:07)
[2017-07-11] MEDS: LISINOPRIL 20 MG TABLET PO SCH ×2 (09:19→16:07)
[2017-07-11] MEDS: HALOPERIDOL 5 MG TABLET PO PRN ×2 (09:43→16:07)
[2017-07-11 16:00] VITALS: BP 138/76
[2017-07-12 06:12] VITALS: BP 135/75
[2017-07-12 08:10] VITALS: BP 138/69
[2017-07-12] MEDS: NICOTINE 14 MG/24 HOUR PATCH TD SCH (09:50)
[2017-07-12] MEDS: PALIPERIDONE 6 MG ER TABLET PO SCH ×2 (09:50→16:26)
[2017-07-12] MEDS: LISINOPRIL 20 MG TABLET PO SCH ×2 (09:50→16:26)
[2017-07-12] MEDS: LORazepam 2 MG TABLET PO PRN ×2 (10:12→16:26)
[2017-07-12 16:08] VITALS: BP 142/82
[2017-07-13 04:05] VITALS: BP 120/95
[2017-07-13] MEDS: LORazepam 2 MG TABLET PO PRN ×2 (09:03→17:15)
[2017-07-13] MEDS: NICOTINE 14 MG/24 HOUR PATCH TD SCH (09:03)
[2017-07-13] MEDS: PALIPERIDONE 6 MG ER TABLET PO SCH ×2 (09:03→17:15)
[2017-07-13] MEDS: LISINOPRIL 20 MG TABLET PO SCH ×2 (09:03→17:15)
[2017-07-13 10:26] VITALS: BP 146/77
[2017-07-13 16:00] VITALS: BP 109/69
[2017-07-13] MEDS: HALOPERIDOL 5 MG TABLET PO PRN (17:15)
[2017-07-14 07:02] VITALS: BP 104/61
[2017-07-14 08:16] VITALS: BP 136/82
[2017-07-14] MEDS: LISINOPRIL 20 MG TABLET PO SCH ×2 (08:37→16:53)
[2017-07-14] MEDS: PALIPERIDONE 6 MG ER TABLET PO SCH ×2 (08:37→16:52)
[2017-07-14] MEDS: NICOTINE 14 MG/24 HOUR PATCH TD SCH (08:40)
[2017-07-14] MEDS: LORazepam 2 MG TABLET PO PRN ×3 (10:28→20:54)
[2017-07-14 16:36] VITALS: BP 115/64
[2017-07-14] MEDS: HALOPERIDOL 5 MG TABLET PO PRN (16:53)
[2017-07-14] MEDS: ZOLPIDEM TARTRATE 10 MG TABLET PO PRN (20:54)
[2017-07-15 05:35] VITALS: BP 125/79
[2017-07-15 08:14] VITALS: BP 112/62
[2017-07-15] MEDS: PALIPERIDONE 6 MG ER TABLET PO SCH ×2 (09:16→16:32)
[2017-07-15] MEDS: HALOPERIDOL 5 MG TABLET PO PRN ×3 (09:16→17:21)
[2017-07-15] MEDS: NICOTINE 14 MG/24 HOUR PATCH TD SCH (09:16)
[2017-07-15] MEDS: LORazepam 2 MG TABLET PO PRN ×3 (09:16→17:21)
[2017-07-15] MEDS: LISINOPRIL 20 MG TABLET PO SCH ×2 (09:16→16:32)
[2017-07-15] MEDS: IBUPROFEN 400 MG TABLET PO PRN (13:21)
[2017-07-16] VITALS (10 sets, daily range): BP systolic 105–153; BP diastolic 68–95
[2017-07-16] MEDS: IBUPROFEN 400 MG TABLET PO PRN (06:48)
[2017-07-16] MEDS: NICOTINE 14 MG/24 HOUR PATCH TD SCH (09:00)
[2017-07-16] MEDS: PALIPERIDONE 6 MG ER TABLET PO SCH ×2 (09:02→16:57)
[2017-07-16] MEDS: LORazepam 2 MG TABLET PO PRN ×3 (09:03→17:09)
[2017-07-16] MEDS: HALOPERIDOL 5 MG TABLET PO PRN ×3 (09:03→17:09)
[2017-07-16] MEDS: LISINOPRIL 20 MG TABLET PO SCH ×2 (09:03→16:57)
[2017-07-17 00:55] VITALS: BP 111/66
[2017-07-17] MEDS: NICOTINE 14 MG/24 HOUR PATCH TD SCH (09:00)
[2017-07-17] MEDS: PALIPERIDONE 6 MG ER TABLET PO SCH ×2 (09:07→16:01)
[2017-07-17] MEDS: LISINOPRIL 20 MG TABLET PO SCH ×2 (09:08→16:01)
[2017-07-17 10:34] VITALS: BP 132/84
[2017-07-17] MEDS: HALOPERIDOL 5 MG TABLET PO PRN (16:01)
[2017-07-17] MEDS: LORazepam 2 MG TABLET PO PRN (16:01)
[2017-07-17 16:30] VITALS: BP 123/79
[2017-07-17] MEDS: ZOLPIDEM TARTRATE 10 MG TABLET PO PRN (20:38)
[2017-07-18 04:07] VITALS: BP 112/73
[2017-07-18 08:00] VITALS: BP 128/90
[2017-07-18] MEDS: NICOTINE 14 MG/24 HOUR PATCH TD SCH (09:29)
[2017-07-18] MEDS: PALIPERIDONE 6 MG ER TABLET PO SCH ×2 (09:29→16:43)
[2017-07-18] MEDS: LISINOPRIL 20 MG TABLET PO SCH ×2 (09:29→16:43)
[2017-07-18] MEDS: HALOPERIDOL 5 MG TABLET PO PRN (16:43)
[2017-07-18] MEDS: LORazepam 2 MG TABLET PO PRN (16:43)
[2017-07-18 16:51] VITALS: BP 134/83
[2017-07-18] MEDS: ZOLPIDEM TARTRATE 10 MG TABLET PO PRN (20:32)
[2017-07-19 04:27] VITALS: BP 135/85
[2017-07-19 08:12] VITALS: BP 138/84
[2017-07-19] MEDS: PALIPERIDONE 6 MG ER TABLET PO SCH ×2 (09:25→17:34)
[2017-07-19] MEDS: LISINOPRIL 20 MG TABLET PO SCH ×2 (09:25→17:09)
[2017-07-19] MEDS: NICOTINE 14 MG/24 HOUR PATCH TD SCH (09:26)
[2017-07-19] MEDS: LORazepam 2 MG TABLET PO PRN ×2 (09:26→17:09)
[2017-07-19 16:37] VITALS: BP 131/85
[2017-07-19] MEDS: HALOPERIDOL 5 MG TABLET PO PRN (17:09)
[2017-07-20 03:06] VITALS: BP 118/60
[2017-07-20] MEDS: LORazepam 2 MG TABLET PO PRN ×2 (08:13→16:54)
[2017-07-20] MEDS: PALIPERIDONE 6 MG ER TABLET PO SCH ×2 (08:13→16:54)
[2017-07-20] MEDS: LISINOPRIL 20 MG TABLET PO SCH ×2 (08:13→16:54)
[2017-07-20] MEDS: NICOTINE 14 MG/24 HOUR PATCH TD SCH (08:14)
[2017-07-20 08:18] VITALS: BP 132/84
[2017-07-20] MEDS: HALOPERIDOL 5 MG TABLET PO PRN (16:54)
[2017-07-20 17:41] VITALS: BP 128/72
[2017-07-21 06:36] VITALS: BP 129/82
[2017-07-21 08:15] VITALS: BP 135/75
[2017-07-21] MEDS: LISINOPRIL 20 MG TABLET PO SCH ×2 (08:51→16:34)
[2017-07-21] MEDS: NICOTINE 14 MG/24 HOUR PATCH TD SCH (08:51)
[2017-07-21] MEDS: PALIPERIDONE 6 MG ER TABLET PO SCH ×2 (08:51→16:33)
[2017-07-21 16:00] VITALS: BP 137/86
[2017-07-21] MEDS: LORazepam 2 MG TABLET PO PRN (16:34)
[2017-07-21] MEDS: HALOPERIDOL 5 MG TABLET PO PRN (16:34)
[2017-07-22 06:38] VITALS: BP 137/90
[2017-07-22 08:00] VITALS: BP 118/87
[2017-07-22] MEDS: NICOTINE 14 MG/24 HOUR PATCH TD SCH (09:00)
[2017-07-22] MEDS: LORazepam 2 MG TABLET PO PRN ×2 (10:16→16:24)
[2017-07-22] MEDS: LISINOPRIL 20 MG TABLET PO SCH ×2 (10:16→16:24)
[2017-07-22] MEDS: PALIPERIDONE 6 MG ER TABLET PO SCH ×2 (10:16→16:24)
[2017-07-22] MEDS: HALOPERIDOL 5 MG TABLET PO PRN ×2 (10:17→16:24)
[2017-07-22 16:21] VITALS: BP 128/80
[2017-07-23 05:22] VITALS: BP 128/82
[2017-07-23 08:00] VITALS: BP 114/75
[2017-07-23] MEDS: NICOTINE 14 MG/24 HOUR PATCH TD SCH (08:35)
[2017-07-23] MEDS: LISINOPRIL 20 MG TABLET PO SCH ×2 (08:35→16:46)
[2017-07-23] MEDS: LORazepam 2 MG TABLET PO PRN ×2 (08:35→20:22)
[2017-07-23] MEDS: PALIPERIDONE 6 MG ER TABLET PO SCH ×2 (08:35→16:46)
[2017-07-23] MEDS: HALOPERIDOL 5 MG TABLET PO PRN (08:35)
[2017-07-23 16:46] VITALS: BP 137/79
[2017-07-23] MEDS: ZOLPIDEM TARTRATE 10 MG TABLET PO PRN (20:22)
[2017-07-24 05:37] VITALS: BP 133/73
[2017-07-24 08:16] VITALS: BP 132/72
[2017-07-24] MEDS: PALIPERIDONE 6 MG ER TABLET PO SCH ×2 (08:40→16:36)
[2017-07-24] MEDS: LISINOPRIL 20 MG TABLET PO SCH ×2 (08:40→16:36)
[2017-07-24] MEDS: NICOTINE 14 MG/24 HOUR PATCH TD SCH (08:42)
[2017-07-24 16:00] VITALS: BP 138/88
[2017-07-24] MEDS: HALOPERIDOL 5 MG TABLET PO PRN (16:36)
[2017-07-24] MEDS: LORazepam 2 MG TABLET PO PRN (16:36)
[2017-07-25 05:08] VITALS: BP 132/79
[2017-07-25 08:00] VITALS: BP 127/83
[2017-07-25] MEDS: PALIPERIDONE 6 MG ER TABLET PO SCH ×2 (08:18→16:33)
[2017-07-25] MEDS: LORazepam 2 MG TABLET PO PRN ×2 (08:18→16:33)
[2017-07-25] MEDS: LISINOPRIL 20 MG TABLET PO SCH ×2 (08:18→16:33)
[2017-07-25] MEDS: NICOTINE 14 MG/24 HOUR PATCH TD SCH (08:19)
[2017-07-25] MEDS: HALOPERIDOL 5 MG TABLET PO PRN ×2 (09:24→16:33)
[2017-07-25 16:00] VITALS: BP 132/87
[2017-07-26 05:09] VITALS: BP 130/66
[2017-07-26 08:40] VITALS: BP 132/69
[2017-07-26] MEDS: PALIPERIDONE 6 MG ER TABLET PO SCH ×2 (08:50→16:50)
[2017-07-26] MEDS: LISINOPRIL 20 MG TABLET PO SCH ×2 (08:51→16:50)
[2017-07-26] MEDS: LORazepam 2 MG TABLET PO PRN ×2 (08:51→16:50)
[2017-07-26] MEDS: HALOPERIDOL 5 MG TABLET PO PRN ×2 (08:51→16:50)
[2017-07-26] MEDS: NICOTINE 14 MG/24 HOUR PATCH TD SCH (08:51)
[2017-07-26 16:00] VITALS: BP 137/74
[2017-07-27 05:31] VITALS: BP 127/81
[2017-07-27 08:00] VITALS: BP 148/90
[2017-07-27] MEDS: LISINOPRIL 20 MG TABLET PO SCH ×2 (08:42→17:34)
[2017-07-27] MEDS: NICOTINE 14 MG/24 HOUR PATCH TD SCH (08:43)
[2017-07-27] MEDS: PALIPERIDONE 6 MG ER TABLET PO SCH ×2 (08:43→17:34)
[2017-07-27 10:02] VITALS: BP 132/87
[2017-07-27] MEDS: IBUPROFEN 400 MG TABLET PO PRN (10:05)
[2017-07-27 11:02] VITALS: BP 144/81
[2017-07-27 16:11] VITALS: BP 129/82
[2017-07-27] MEDS: LORazepam 2 MG TABLET PO PRN (17:34)
[2017-07-27] MEDS: HALOPERIDOL 5 MG TABLET PO PRN (17:34)
[2017-07-27] MEDS: ZOLPIDEM TARTRATE 10 MG TABLET PO PRN (21:29)
[2017-07-28 06:10] VITALS: BP 144/86
[2017-07-28 08:11] VITALS: BP 116/72
[2017-07-28] MEDS: PALIPERIDONE 6 MG ER TABLET PO SCH ×2 (09:36→16:50)
[2017-07-28] MEDS: NICOTINE 14 MG/24 HOUR PATCH TD SCH (09:36)
[2017-07-28] MEDS: LISINOPRIL 20 MG TABLET PO SCH ×2 (09:36→16:49)
[2017-07-28] MEDS: LORazepam 2 MG TABLET PO PRN ×2 (09:36→16:50)
[2017-07-28 16:00] VITALS: BP 138/68
[2017-07-28] MEDS: HALOPERIDOL 5 MG TABLET PO PRN (16:49)
[2017-07-29 07:00] VITALS: BP 120/70
[2017-07-29] MEDS: HALOPERIDOL 5 MG TABLET PO PRN ×3 (08:03→17:29)
[2017-07-29] MEDS: PALIPERIDONE 6 MG ER TABLET PO SCH ×2 (08:03→17:28)
[2017-07-29] MEDS: LISINOPRIL 20 MG TABLET PO SCH ×2 (08:03→17:29)
[2017-07-29] MEDS: LORazepam 2 MG TABLET PO PRN ×3 (08:03→17:29)
[2017-07-29] MEDS: NICOTINE 14 MG/24 HOUR PATCH TD SCH (08:04)
[2017-07-29 09:11] VITALS: BP 120/68
[2017-07-29] MEDS: IBUPROFEN 400 MG TABLET PO PRN (11:43)
[2017-07-29 16:00] VITALS: BP 130/71
[2017-07-30 06:08] VITALS: BP 128/78
[2017-07-30] MEDS: LORazepam 2 MG TABLET PO PRN ×3 (08:02→18:54)
[2017-07-30] MEDS: PALIPERIDONE 6 MG ER TABLET PO SCH ×2 (08:02→16:52)
[2017-07-30] MEDS: NICOTINE 14 MG/24 HOUR PATCH TD SCH (08:02)
[2017-07-30] MEDS: LISINOPRIL 20 MG TABLET PO SCH ×2 (08:02→16:52)
[2017-07-30] MEDS: HALOPERIDOL 5 MG TABLET PO PRN ×3 (08:02→18:53)
[2017-07-30 08:44] VITALS: BP 146/77
[2017-07-30] MEDS: ZOLPIDEM TARTRATE 10 MG TABLET PO PRN (20:46)
[2017-07-31 05:47] VITALS: BP 134/83
[2017-07-31 08:00] VITALS: BP 149/79
[2017-07-31] MEDS: LISINOPRIL 20 MG TABLET PO SCH ×2 (10:20→16:50)
[2017-07-31] MEDS: PALIPERIDONE 6 MG ER TABLET PO SCH ×2 (10:20→16:50)
[2017-07-31] MEDS: HALOPERIDOL 5 MG TABLET PO PRN ×2 (10:21→16:50)
[2017-07-31] MEDS: NICOTINE 14 MG/24 HOUR PATCH TD SCH (10:21)
[2017-07-31] MEDS: LORazepam 2 MG TABLET PO PRN ×2 (10:21→16:50)
[2017-07-31 12:00] VITALS: BP 137/80
[2017-07-31 16:26] VITALS: BP 150/72
[2017-07-31 17:45] VITALS: BP 135/79
[2017-07-31] MEDS: ZOLPIDEM TARTRATE 10 MG TABLET PO PRN (21:09)
[2017-08-01 04:22] VITALS: BP 106/68
[2017-08-01 08:30] VITALS: BP 131/85
[2017-08-01] MEDS: NICOTINE 14 MG/24 HOUR PATCH TD SCH (09:00)
[2017-08-01] MEDS: PALIPERIDONE 6 MG ER TABLET PO SCH ×2 (09:08→16:06)
[2017-08-01] MEDS: LISINOPRIL 20 MG TABLET PO SCH ×2 (09:08→16:06)
[2017-08-01] MEDS ORDERED: PALIPERIDONE PALMITATE 234 MG/1.5 ML SYRINGE IM ONE (09:45)
[2017-08-01 10:52] VITALS: BP 135/81
[2017-08-01] MEDS: IBUPROFEN 400 MG TABLET PO PRN (10:54)
[2017-08-01 11:52] VITALS: BP 131/62
[2017-08-01 16:08] VITALS: BP 128/90
[2017-08-01] MEDS: LORazepam 2 MG TABLET PO PRN (20:11)
[2017-08-01] MEDS: ZOLPIDEM TARTRATE 10 MG TABLET PO PRN (20:11)
[2017-08-02 06:33] VITALS: BP 132/88
[2017-08-02 08:50] VITALS: BP 126/92
[2017-08-02] MEDS: LORazepam 2 MG TABLET PO PRN (08:51)
[2017-08-02] MEDS: PALIPERIDONE 6 MG ER TABLET PO SCH ×2 (08:51→16:17)
[2017-08-02] MEDS: LISINOPRIL 20 MG TABLET PO SCH ×2 (08:51→16:17)
[2017-08-02] MEDS: IBUPROFEN 400 MG TABLET PO PRN (08:52)
[2017-08-02 08:54] VITALS: BP 112/79
[2017-08-02] MEDS: NICOTINE 14 MG/24 HOUR PATCH TD SCH (08:54)
[2017-08-02 16:07] VITALS: BP 132/82
== END 2017-08-02 17:15 | disposition home or self-care (01) | DRG 750 ==
LOC: EDSTATUS 20:27 → B3A 20:38
PROVIDERS: ADMIT Psychiatry & Neurology Psychiatry; ATTEND Psychiatry & Neurology Psychiatry
DX: F20.0 Paranoid schizophrenia (principal); E11.9 Type 2 diabetes mellitus without complications; I10 Essential (primary) hypertension; E03.9 Hypothyroidism, unspecified; D64.9 Anemia, unspecified; E78.5 Hyperlipidemia, unspecified; F41.9 Anxiety disorder, unspecified; F19.90 Other psychoactive substance use, unspecified, uncomplicated; F17.200 Nicotine dependence, unspecified, uncomplicated; Z59.0 Homelessness; Z71.6 Tobacco abuse counseling
CPT/HCPCS: 72100; 87081; 99285; J1200; J1630; J2060